=== PATIENT | female | born 1930 | race Caucasian/White ===

== ENCOUNTER → 2016-05-15 | Outpatient (CLI) | payer OTHER, BC ==
--- NOTE | 2016-05-16 09:08 | DX ---
Thoracolumbar Spine, Two Views Indication: Back pain. Comparison: April 20, 2005. Findings: There certainly is an abundant amount of degenerative disease throughout the lumbar and tho racic spine. Compared to 2005, multiple levels now show decreased height. For example, L1, best seen on the frontal view, measures 22 mm compared to the previous 33 mm. L5, now measuring 22 mm, previous ly measured 37 mm. L4, now measuring 21 mm, previously measured 30 mm. There is worsening degenerative disk disease, mostly characterized by endplate sclerosis and continue d loss of intervertebral disk space. At some levels, such as L4-L5, the disk space is completely abse nt. It is also essentially absent along the inferior aspect of L1-L2. There is diffuse osteopenia. Impression: 1. Predominant finding is multilevel loss of vertebral body height in the lumbar spine since 2004. Th e height loss is diffuse throughout the vertebrae involved, rather than wedge like, which makes it un usual for loss of height caused by compression fracture. Nonetheless, that is not completely excluded given degree of osteopenia/osteoporosis. 2. 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 I suspect this would also be associated with foraminal and canal stenoses that a re not particularly looked at by these two views.
== END ==
LOC: FIMAGING 12:03
PROVIDERS: ATTEND Internal Medicine
DX: M51.36 Other intervertebral disc degeneration, lumbar region (principal); M99.73 Connective tissue and disc stenosis of intervertebral foramina of lumbar region